=== PATIENT | female | born 2000 | race Caucasian/White ===

== ENCOUNTER 2020-10-05 17:53 | Emergency (ER) | payer SELFPAY ==
[2020-10-05] MEDS ORDERED: Ketorolac Tromethamine 30 MG/ML VIAL ONE (19:04)
[2020-10-05] MEDS ORDERED: Morphine 4 MG/ML VIAL ONE (19:04)
== END 2020-10-05 20:07 | disposition home or self-care (01) ==
LOC: ERS 17:53
DX: S12.500A Unspecified displaced fracture of sixth cervical vertebra, initial encounter for closed fracture (principal); E11.9 Type 2 diabetes mellitus without complications; F31.9 Bipolar disorder, unspecified; F41.9 Anxiety disorder, unspecified; Z79.899 Other long term (current) drug therapy; V89.2XXA Person injured in unspecified motor-vehicle accident, traffic, initial encounter
CPT/HCPCS: 96374; 96375; J1885; J2270